=== PATIENT | male | born 1975 | race Caucasian/White ===

== ENCOUNTER 2023-03-19 00:03 | Emergency (ER) | payer BC ==
[~2023-03-19] VITALS: Ht 188 cm; Wt 127.0 kg
[2023-03-19] MEDS ORDERED: CYCLOBENZAPRINE HCL 10 MG TABLET PO ONE (01:15)
[2023-03-19] MEDS ORDERED: KETOROLAC TROMETHAMINE 30 MG INJ IVP ONE (01:15)
[2023-03-19] MEDS ORDERED: KETOROLAC TROMETHAMINE 30 MG INJ ONE (01:45)
[2023-03-19] MEDS ORDERED: CYCLOBENZAPRINE HCL 10 MG TABLET ONE (01:45)
[2023-03-19 02:16] LABS: BASOPHILS % (AUTO) 0.5 % (0.0-2.0); EOSINOPHILS # (AUTO) 0.1 K/uL (0.0-0.7); EOSINOPHILS % (AUTO) 1.4 % (0.0-7.0); HEMATOCRIT 49.2 % (36.7-47.1); HEMOGLOBIN 17.1 g/dL (12.5-16.3); LYMPHOCYTES # (AUTO) 2.2 K/uL (0.8-4.8); LYMPHOCYTES % (AUTO) 34.5 % (20.5-51.5); MEAN CORPUSCULAR HEMOGLOBIN 29.4 uug (23.8-33.4); MEAN CORPUSCULAR HGB CONC 35 g/dL (32.5-36.3); MEAN CORPUSCULAR VOLUME 84.3 fL (73.0-96.2); MONOCYTES # (AUTO) 0.5 K/uL (0.1-1.30); MONOCYTES % (AUTO) 7.5 % (0.0-11.0); NEUTROPHILS # (AUTO) 3.6 K/uL (1.8-8.9); NEUTROPHILS % (AUTO) 56.1 % (38.5-71.5); PLATELET COUNT (AUTO) 197 K/uL (152-348); RED BLOOD CELL COUNT(AUTO) 5.83 MIL/uL (4.06-5.63); RED CELL DISTRIBUTION WIDTH 13.3 % (12.1-16.2); WHITE BLOOD COUNT (AUTO) 6.5 K/uL (3.6-10.2)
[2023-03-19 02:23] LABS: DIFFERENTIAL COMMENT 1
[2023-03-19 02:27] LABS: ERYTHROCYTE SEDIMENTATION RATE 5 MM/HR (0-15)
[2023-03-19 02:29] LABS: CALCIUM 9.1 mg/dL (8.5-10.1); POTASSIUM 4.1 mmol/L (3.5-5.1)
[2023-03-19 02:35] LABS: ALBUMIN 4.2 g/dL (3.4-5.0); BILIRUBIN,TOTAL 0.4 mg/dL (0.2-1.0); TOTAL PROTEIN, SERUM 7.7 g/dL (6.4-8.2)
[2023-03-19] MEDS ORDERED: DIAZEPAM 5 MG TABLET ONE (02:37)
[2023-03-19] MEDS ORDERED: HYDROMORPHONE 1 MG/1 ML DISP.SYRIN ONE ×3 (02:37→06:17)
[2023-03-19] MEDS ORDERED: ONDANSETRON 4 MG/2 ML VIAL ONE (02:37)
[2023-03-19] MEDS ORDERED: DIAZEPAM 10 MG/2 ML DISP.SYRIN ONE ×2 (02:39→06:16)
[2023-03-19] MEDS ORDERED: HYDROMORPHONE 1 MG/1 ML DISP.SYRIN IV ONE ×2 (02:45→05:30)
[2023-03-19] MEDS ORDERED: DIAZEPAM 10 MG/2 ML DISP.SYRIN IV ONE (02:45)
[2023-03-19] MEDS ORDERED: ONDANSETRON 4 MG/2 ML VIAL IV ONE (02:45)
[2023-03-19] MEDS ORDERED: CYCL5TAB PO ×2 (05:25→16:39)
[2023-03-19] MEDS ORDERED: ONDANSETRON ODT 4 MG TAB.RAPDIS SL ONE (06:15)
[2023-03-19] MEDS ORDERED: DIAZEPAM 10 MG/2 ML DISP.SYRIN IM ONE (06:15)
[2023-03-19] MEDS ORDERED: HYDROMORPHONE 1 MG/1 ML DISP.SYRIN IM ONE (06:15)
[2023-03-19] MEDS ORDERED: ONDANSETRON ODT 4 MG TAB.RAPDIS ONE (06:16)
[2023-03-19 06:22] VITALS: BP 149/85; O2SAT 97
== END 2023-03-19 06:23 | disposition home or self-care (01) ==
LOC: ER 00:07
DX: M43.6 Torticollis (principal); Z79.899 Other long term (current) drug therapy
CPT/HCPCS: 99285; 72125; 96374; 96375; 80053; 85025; 85651; 36415; 72128; 96376; 96372; J3360 ×2; J1885; J2405; J1170 ×3; A4606; A4663; Q0162

== ENCOUNTER 2023-03-19 16:07 | Emergency (ER) | payer BC ==
[~2023-03-19 16:07] MED LIST: CYCL5TAB PO
[2023-03-19] MEDS ORDERED: CYCL5TAB PO (16:39)
== END 2023-03-21 14:18 | disposition home or self-care (01) ==
LOC: ER 16:07
DX: Z53.21 Procedure and treatment not carried out due to patient leaving prior to being seen by health care provider (principal)